=== PATIENT | male | born 1995 | race Caucasian/White ===

== ENCOUNTER 2024-09-04 21:40 | Emergency (ER) | payer MEDICAID ==
[~2024-09-04] VITALS: Ht 167.6 cm; Wt 88.0 kg
[2024-09-04 21:55] VITALS: O2SAT 98
[2024-09-04 22:50] VITALS: TEMP 36.94740
[2024-09-04] MEDS: ONDANSETRON HCL 4MG/2ML INJ IV STA (22:51)
[2024-09-04] MEDS: KETOROLAC 30MG/ML VIAL IV STA (22:51)
[2024-09-04] MEDS: SODIUM CHLORIDE 0.9% 1,000 ML IV ONE (22:52)
[2024-09-04 23:29] LABS: HEMATOCRIT. 50.4 % (42.0-52.0); HEMOGLOBIN. 16.9 g/dL (14.0-18.0); MEAN CORPUSCULAR HEMOGLOBIN 30.3 pg (28.0-32.0); MEAN CORPUSCULAR HGB CONC 33.6 g/dL (31.0-37.0); MEAN CORPUSCULAR VOLUME 90.3 fL (80.0-94.0); MEAN PLATELET VOLUME 9.5 fl (7.4-10.4); PLATELET 203 x1000/uL (130-400); RED BLOOD CELL COUNT 5.59 mill/uL (4.7-6.1); RED CELL DISTRIBUTION WIDTH 12.5 % (11.6-14.6); WHITE BLOOD COUNT 17.1 x1000/uL (4.5-11.0)
[2024-09-04 23:34] LABS: CHLORIDE 103 mEq/L (98-107); POTASSIUM 4.8 mEq/L (3.5-5.1); SODIUM 137 mEq/L (136-145)
[2024-09-04 23:35] LABS: CALCIUM 9.6 mg/dL (8.7-10.4); CARBON DIOXIDE 22 mEq/L (21-32)
[2024-09-04 23:40] LABS: CREATININE 1.1 mg/dL (0.6-1.3); GLUCOSE 376 mg/dL (70-105); UREA NITROGEN BLOOD 19 mg/dL (9-23)
[2024-09-04 23:43] LABS: ETHANOL BLOOD < 10 mg/dL (<10)
[2024-09-04 23:44] LABS: DIFFERENTIAL COMMENT 1
[2024-09-05 02:23] LABS: TROPONIN I HIGH SENSITIVITY 7 ng/L (3.0-53)
[2024-09-05 02:24] LABS: CREATINE KINASE 118 IU/L (46-171)
[2024-09-05 02:27] VITALS: BP 116/47; PULSE 76; RESP 16; O2SAT 98
[2024-09-05] MEDS: ONDANSETRON HCL 4MG/2ML INJ IV STA (02:49)
[2024-09-05] MEDS ORDERED: ONDA4TAB50 MT (03:07)
[2024-09-05] MEDS ORDERED: IOHEXOL-350 100 ML BOTTLE ONE (03:22)
[2024-09-05 07:57] LABS: PLATELET ESTIMATE NORMAL
== END 2024-09-05 05:12 | disposition home or self-care (01) ==
LOC: ER 21:40
DX: R10.9 Unspecified abdominal pain (principal); E10.65 Type 1 diabetes mellitus with hyperglycemia; Z79.4 Long term (current) use of insulin
CPT/HCPCS: 80048; 80320; 83690; 85025; 36415; 74176; 93005; 96361; 96374; 99285; 82550; 85379; 84484; 71275; 96375; 96376; J1885; J2405 ×2; J7030; Q9967; G0480